=== PATIENT | male | born 1970 | race Hispanic/Latino ===

== ENCOUNTER 2018-03-30 14:58 | Emergency (ER) | payer OTHER ==
[2018-03-30 15:18] VITALS: BP 141/77
--- NOTE | 2018-03-30 15:29 | ED SKIN/ALLERGY COMPLAINT ---
History of Present Illness General Chief Complaint: Suture Removal/Wound Recheck Stated Complaint: SUTURE REMOVAL Source: patient Exam Limitations: no limitations Vital Signs & Intake/Output Vital Signs & Intake/Output Vital Signs Date Time Temp Pulse Resp B/P B/P Pulse O2 O2 Flow FiO2 Mean Ox Delivery Rate 03/30 1518 96.8 51 15 141/77 96 Room Air Room Air Allergies Coded Allergies: No Known Allergies (03/30/18) Triage Note: PT TO ED FOR SUTURE REMOVAL. Triage Nurses Notes Reviewed? yes Onset: Gradual Duration: day(s): Timing: recent history Severity: moderate Location: right arm HPI: 47yo male presents to ED requesting suture removal. Patient is a 9 days ago he cut right forearm. Patient was in [place] at that time and had stitches placed. He states that the wound was gaping, down to the bone. Patient was put on antibiotics which he has been taking as prescribed. He denies redness, swelling, warmth, pain to skin area. (Bing Cody) Past History Travel History Traveled to [place] past 21 day No Medical History Any Pertinent Medical History? 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 No (Bing Cody) Review of Systems Review of Systems Constitutional: Reports: no symptoms. EENTM: Reports: no symptoms. Respiratory: Reports: no symptoms. Cardiovascular: Reports: no symptoms. GI: Reports: no symptoms. Genitourinary: Reports: no symptoms. Musculoskeletal: Reports: see HPI. Skin: Reports: see HPI. Neurological/Psychological: Reports: no symptoms. Hematologic/Endocrine: Reports: no symptoms. Immunologic/Allergic: Reports: no symptoms. All Other Systems: Reviewed and Negative (Bing Cody) Physical Exam Physical Exam General Appearance: well developed/nourished, no apparent distress, alert, awake Head: atraumatic, normal appearance Eyes: Bilateral: normal appearance. Ears, Nose, Throat: hearing grossly normal Neck: normal inspection, supple, full range of motion Respiratory: no respiratory distress Extremities: normal range of motion, healing 6cm lateral with suture in place Neurologic/Psych: awake, alert, oriented x 3 Skin: normal color, warm/dry (Bing Cody) Progress Differential Diagnosis: abscess/cellulitis, laceration, suture removal, wound check Plan of Care: Wound appeared ready for suture removal however after one suture was removed wound appeared to be opening. Wound was deep and required horizontal mattress sutures. Will leave stitches in for 3-4 more days and have wound re-assessed at that time. One steri strip was placed where suture was removed given opening of wound. No evidence of cellulitis at this time. Patient agrees with the plan of care. (Bing Cody) Departure Departure Disposition: HOME OR SELF CARE Condition: Stable Clinical Impression Primary Impression: Visit for wound check Referrals: Unknown (PCP/Family) Additional Instructions: Return in 3-4 days for removal of stitches. Continue to monitor for symptoms of infection. Departure Forms: Customer Survey General Discharge Information (Bing Cody) PA/OPERATIONS MANAGEMENT TRAINEE Co-Sign Statement Statement: ED Attending supervision documentation- [] I saw and evaluated the patient. I have also reviewed all the pertinent lab results and diagnostic results. I agree with the findings and the plan of care as documented in the PA's/OPERATIONS MANAGEMENT TRAINEE's documentation. [X] I have reviewed the ED Record and agree with the PA's/OPERATIONS MANAGEMENT TRAINEE's documentation. [] Additions or exceptions (if any) to the PAs/OPERATIONS MANAGEMENT TRAINEE's note and plan are summarized below: [] (Bhanu Hernandez DO
== END 2018-03-30 15:48 ==
LOC: ERH 14:58
DX: Z48.02 Encounter for removal of sutures (principal)

== ENCOUNTER 2018-04-03 07:18 | Emergency (ER) | payer OTHER ==
[~2018-04-03] VITALS: Ht 165.1 cm; Wt 83.9 kg
[2018-04-03 07:21] VITALS: BP 128/50
--- NOTE | 2018-04-03 07:33 | ED ANIMAL BITE/WOUND CHECK ---
History of Present Illness General Chief Complaint: Suture Removal/Wound Recheck Stated Complaint: SUTURE REMOVAL Source: patient Exam Limitations: no limitations Vital Signs & Intake/Output Vital Signs & Intake/Output Vital Signs Date Time Temp Pulse Resp B/P B/P Pulse O2 O2 Flow FiO2 Mean Ox Delivery Rate 04/03 0721 98.0 70 20 128/50 98 Room Air Allergies Coded Allergies: No Known Allergies (03/30/18) Reconcile Medications No Known Home Medications Triage Note: PT TO ED FOR SUTURE REMOVAL TO [facility], PLACED February IN [place]. Triage Nurses Notes Reviewed? yes HPI: Patient presents for suture removal from his right forearm. Sutures were placed approximately 2 weeks ago after a deep laceration. Patient required 4 horizontal mattresses as well as 7 simple interrupted. Patient was on antibiotics but finished the course. Patient was seen the other day and was told that it was too early to take sutures out and to return today for reevaluation. Patient has no complaints. There are no fevers or chills. There is no pain. There is no redness. There is no pus discharge. Past History Travel History Traveled to [place] past 21 day No Medical History Any Pertinent Medical History? 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 No Review of Systems Review of Systems Constitutional: Reports: no symptoms. Respiratory: Reports: no symptoms. Cardiovascular: Reports: no symptoms. Musculoskeletal: Reports: no symptoms. Neurological/Psychological: Reports: no symptoms. Immunologic/Allergic: Reports: no symptoms. Physical Exam Physical Exam General Appearance: well developed/nourished, alert, awake Head: atraumatic Eyes: Bilateral: PERRL, EOMI. Extremities: sUTURES ARE IN PLACE, NO SIGNS OF INFECTION, NO FLUCTUANCE. nO ERYTHEMA. sUTURES ARE NOT READY FOR REMOVAL AT THIS TIME. Neurologic/Psych: no motor/sensory deficits, awake, alert, oriented x 3, normal gait, normal mood/affect Progress Differential Diagnosis: WOUND CHECK Plan of Care: RETURN IN 4 DAYS FOR A RE-EVAL Departure Departure Disposition: HOME OR SELF CARE Condition: Stable Clinical Impression Primary Impression: Visit for wound check Referrals: Patient Has No Primary Care Dr (PCP/Family) Additional Instructions: return in 4 more days to see if sutures are ready for removal. they are not ready to come out yet. return sooner if area turns red, hot to the touch, pus draiange or any concerns Departure Forms: Customer Survey General Discharge Information Prescriptions: Current Visit Scripts No Known Home Medications
== END 2018-04-03 07:40 ==
LOC: ERH 07:18
DX: Z48.02 Encounter for removal of sutures (principal)

== ENCOUNTER 2018-04-07 08:49 | Emergency (ER) | payer OTHER ==
[~2018-04-07] VITALS: Ht 165.1 cm; Wt 83.9 kg
[2018-04-07 08:58] VITALS: BP 136/82
--- NOTE | 2018-04-07 09:28 | ED ANIMAL BITE/WOUND CHECK ---
History of Present Illness General Chief Complaint: Suture Removal/Wound Recheck Stated Complaint: SUTURE REMOVAL Source: patient Exam Limitations: no limitations Vital Signs & Intake/Output Vital Signs & Intake/Output Vital Signs Date Time Temp Pulse Resp B/P B/P Pulse O2 O2 Flow FiO2 Mean Ox Delivery Rate 04/07 0858 98.2 64 20 136/82 97 Room Air Allergies Coded Allergies: No Known Allergies (03/30/18) Reconcile Medications No Known Home Medications Triage Note: PT HERE FOR SUTURE REMOVAL RIGHT ARM Triage Nurses Notes Reviewed? yes Onset: Abrupt Duration: week(s): (2), better, continues in ED Timing: single episode today Injury Environment: street Is Injury an Animal Bite? No HPI: 47-year-old male with no medical history presents for suture removal. Patient reports he suffered a deep laceration to the right forearm about 2 weeks ago. The laceration occurred in [place] and was repaired there. He came in 2 other times for evaluation but was told the sutures are not ready be removed yet. Patient states she has only mild pain in the area no discharge no redness no fever no numbness or tingling. He feels like it is healed well. (Esau Barnhart) Past History Travel History Traveled to [place] past 21 day No Medical History Any Pertinent Medical History? 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 No (Esau Barnhart) Review of Systems Review of Systems Constitutional: Reports: no symptoms. EENTM: Reports: no symptoms. Respiratory: Reports: no symptoms. Cardiovascular: Reports: no symptoms. GI: Reports: no symptoms. Genitourinary: Reports: no symptoms. Musculoskeletal: Reports: no symptoms. Skin: Reports: see HPI (LACERATION). Neurological/Psychological: Reports: no symptoms. Hematologic/Endocrine: Reports: no symptoms. Immunologic/Allergic: Reports: no symptoms. All Other Systems: Reviewed and Negative (Esau Barnhart) Physical Exam Physical Exam General Appearance: well developed/nourished, no apparent distress, alert, awake Head: atraumatic, normal appearance Eyes: Bilateral: normal appearance, EOMI. Ears, Nose, Throat: hearing grossly normal Neck: normal inspection, supple, full range of motion Respiratory: no respiratory distress Peripheral Pulses: 2+ radial (R), 2+ radial (L) Back: normal inspection, normal range of motion Extremities: normal range of motion Neurologic/Psych: no motor/sensory deficits, awake, alert, oriented x 3 Skin: intact, normal color, warm/dry, THERE IS 6CM WELL HEALED LINEAR LACERATION LOCATED ON THE RT ANTERIOR FOREARM. SUTURES IN PLAE, NO ERYTHEMA OR DISCHARGE, FULL ROM INTACT. N/V SUPPLYH INTACT (Esau Barnhart) Progress Differential Diagnosis: abscess, cellulitis, joint infection, tenosysnovitis Plan of Care: Patient is here for suture removal of the wound appears well-healed. Sutures removed without difficulty. Steri-Strips were placed over the wound to prevent dehiscence. Discussed wound care procedures in detail. Chancellor for signs of infection patient agrees the plan (Esau Barnhart) Departure Departure Disposition: HOME OR SELF CARE Condition: Stable Clinical Impression Primary Impression: Visit for suture removal Referrals: Patient Has No Primary Care Dr (PCP/Family) Additional Instructions: Keep the area clean and dry. Tylenol ibuprofen for pain. Steri-Strips will come off on their own in a few days. Look out for signs of infection like redness swelling discharge or pain. Follow-up with the primary care doctor for a wound check within the next week. Monitor your symptoms return if any concerns. Departure Forms: Customer Survey General Discharge Information Prescriptions: Current Visit Scripts No Known Home Medications (Esau Barnhart) PA/POWER TRANSMISSION ENGINEER Co-Sign Statement Statement: ED Attending supervision documentation- [] I saw and evaluated the patient. I have also reviewed all the pertinent lab results and diagnostic results. I agree with the findings and the plan of care as documented in the PA's/POWER TRANSMISSION ENGINEER's documentation. [X] I have reviewed the ED Record and agree with the PA's/POWER TRANSMISSION ENGINEER's documentation. [] Additions or exceptions (if any) to the PAs/POWER TRANSMISSION ENGINEER's note and plan are summarized below: [] (Bhanu Hernandez DO) ED Attending Observation Initial Observation Note: I have seen and personally examined CHRISTIANE BHAGAT on 04/11/18 at 1029. I agree with the current emergency department documentation. The disposition (admission or discharge) is uncertain at this time, he needs a period of observation for the following reason(s): The ED Nurse caring for this patient has been personally informed as to what the patient is being observed for. (Wu DOMINGUEZ,Esau)
== END 2018-04-07 09:30 ==
LOC: ERH 08:49
DX: Z48.02 Encounter for removal of sutures (principal)

== ENCOUNTER 2018-04-20 09:21 | Emergency (ER) | payer OTHER ==
[~2018-04-20] VITALS: Ht 165.1 cm; Wt 83.9 kg
[2018-04-20 09:26] VITALS: BP 126/83
--- NOTE | 2018-04-20 10:47 | ED GENERAL ADULT ---
History of Present Illness General Chief Complaint: General Adult Stated Complaint: PAIN AT SUTURE SITE AFTER SUTURES WERE REMOVED Source: patient Exam Limitations: no limitations Vital Signs & Intake/Output Vital Signs & Intake/Output Vital Signs Date Time Temp Pulse Resp B/P B/P Pulse O2 O2 Flow FiO2 Mean Ox Delivery Rate 04/20 0926 98.0 61 18 126/83 96 Room Air Allergies Coded Allergies: No Known Allergies (03/30/18) Reconcile Medications No Known Home Medications Triage Note: RETURNS TO ED AFTER HAVING SUTURES PLACE AND REMOVED FROM RIGHT ARM, DEVELOPED SOME PAIN AGAIN 3 DAYS AGO, STATES ITS 8/10. DIDNT TAKE ANY MEDS FOR PAIN. NO SWELLING AT SITE AND SKIN IS INTACT WITHOUT DRAINAGE, ECCHYMOSIS OR ERYTHEMA. Triage Nurses Notes Reviewed? yes Onset: Gradual Duration: day(s): Timing: constant HPI: 47-year-old otherwise healthy male presenting with pain at his suture site times 3 days. Patient sustained a dog bite approximately 1 month ago that was repaired with sutures. His sutures were removed in the emergency department 13 days ago. At that time he had improvement in his initial pain from the injury. His wound and pain continued to heal after the sutures were removed. States that he returned to work 3 days ago which is when he began to have worsening pain in that arm. The pain is worse with movement. Has not tried anything for pain relief. Denies fevers, nausea, vomiting, purulent drainage. (Chelo Hurtado) Past History Travel History Traveled to [place] past 21 day No Medical History Any Pertinent Medical History? 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 No (Chelo Hurtado) Review of Systems Review of Systems Constitutional: Reports: no symptoms. EENTM: Reports: no symptoms. Respiratory: Reports: no symptoms. Cardiovascular: Reports: no symptoms. GI: Reports: no symptoms. Genitourinary: Reports: no symptoms. Musculoskeletal: Reports: see HPI. Skin: Reports: no symptoms. Neurological/Psychological: Reports: no symptoms. Hematologic/Endocrine: Reports: no symptoms. Immunologic/Allergic: Reports: no symptoms. All Other Systems: Reviewed and Negative (Chelo Hurtado) Physical Exam Physical Exam General Appearance: well developed/nourished, no apparent distress, alert, awake , comfortable Comments: Gen.: Well-nourished, well-developed, no acute distress. Head: Normocephalic, atraumatic. Eyes: Normal inspection bilaterally Ears: Normal inspection bilaterally Nose: Normal inspection Neck: Normal inspection Lungs: clear to auscultation bilaterally, normnal breath sounds Heart: regular rate and rhythm Abdomen: soft and non-tender Extremities: Right forearm Inspection: Linear scar in place to right forearm that appears to have healed well, no erythema, no purulent drainage, no wound separation Palpation: Very mild tenderness to palpation over the scar site and surrounding muscle ROM: unrestricted range of motion at the elbow and restraints Sensation: intact Motor strength: 5/5 Pulse: 2+ radial pulse Neurologic: alert and oriented x3, steady gait Skin: warm and dry Psychiatric: Normal mood and affect, no apparent delusions or hallucinations, behavior appropriate Core Measures ACS in differential dx? No CVA/TIA Diagnosis: No Sepsis Present: No Sepsis Focused Exam Completed? No (Chelo Hurtado) Progress Differential Diagnoses I considered the following diagnoses in my evaluation of the patient: [MSK strain versus cellulitis versus abscess versus sepsis] Plan of Care: Orders Procedure Date/time Status LACTIC ACID 04/20 1309 Active BLOOD CULTURE 04/20 1009 Active LACTIC ACID 04/20 1009 Active COMPREHENSIVE METABOLIC PANEL 04/20 1009 Active CBC WITHOUT DIFFERENTIAL 04/20 1009 Active Microbiology 04/20 1009 BLOOD: Blood Culture - ORD 04/20 1009 BLOOD: Blood Culture - ORD Ultrasound was unremarkable. Patient had left the emergency department after his ultrasound was completed. He had left prior to obtaining blood work or receiving pain medication. Suspect patient likely has MSK strain given that he recently returned to work and has been using the extremity more since the injury. Low concern for infection or sepsis. Patient left the emergency department AGAINST MEDICAL ADVICE, before he was able to be counseled on the risks of leaving AGAINST MEDICAL ADVICE. Initial ED EKG: none (Chelo Hurtado) Departure Departure Disposition: LEFT AGAINST MEDICAL ADVICE Condition: Stable Clinical Impression Primary Impression: Right forearm pain Referrals: Patient Has No Primary Care Dr (PCP/Family) Departure Forms: Customer Survey General Discharge Information Prescriptions: Current Visit Scripts No Known Home Medications (Chelo Hurtado) PA/VP PRODUCTION Co-Sign Statement Statement: ED Attending supervision documentation- [] I saw and evaluated the patient. I have also reviewed all the pertinent lab results and diagnostic results. I agree with the findings and the plan of care as documented in the PA's/VP PRODUCTION's documentation. [X] I have reviewed the ED Record and agree with the PA's/VP PRODUCTION's documentation. [] Additions or exceptions (if any) to the PAs/VP PRODUCTION's note and plan are summarized below: [] (Bhanu Hernandez DO) Critical Care Note Critical Care Note Critical Care Time: non-applicable (Chelo Hurtado)
--- NOTE | 2018-04-20 11:00 | ULTRASOUND REPORT ---
EXAMINATION: US SUPERFICIAL IMAGING, EXTREMITY CLINICAL INFORMATION: 47-year-old male with history of injury of right forearm. Suture removal 2 weeks ago now with worsening pain. Evaluate for deep infection. COMPARISON: None TECHNIQUE: Real-time sonographic imaging of superficial tissues of the right forearm was performed over the region of the scar by the operating room technologist as well as the radiologist. FINDINGS: There is minimal edema within subcutaneous tissues deep to the scar of the right forearm. There is no organized or measurable fluid collection. The underlying musculature is normal. No foreign body or abscess. IMPRESSION: - Minimal edema in subcutaneous tissues deep to the region of the scar of the right forearm. - No evidence of foreign body or abscess.
== END 2018-04-20 10:18 | disposition left against medical advice (07) ==
LOC: ERH 09:21
DX: M79.631 Pain in right forearm (principal)
CPT/HCPCS: 76881; 87040